=== PATIENT | female | born 1955 | race Caucasian/White ===

== ENCOUNTER 2023-12-07 09:53 | Emergency (ER) | payer MEDICARE, OTHER, SELFPAY ==
[2023-12-07 09:56] VITALS: BP 141/70
[2023-12-07 11:03] VITALS: BP 151/73
[2023-12-07 11:11] LABS: % Basophils 0.6 % (0-2); % Eosinophils 4.1 % (0-6); % Immature Granulocytes 0.3 % (0-0.5); Absolute Basophils 0.1 10^3/uL (0-0.2); Absolute Eosinophils 0.3 10^3/uL (0-0.7); Absolute Lymphocytes 2.1 10^3/uL (1.2-3.4); Absolute Monocytes 0.7 10^3/uL (0.1-0.6); Absolute Neutrophils 4.7 10^3/uL (1.4-6.5); Hematocrit 38.6 % (37.0-47.0); Hemoglobin 14.3 g/dL (12.0-16.0); Mean Corpuscular Hgb 30.4 pg (27.0-31.0); Mean Platelet Volume 10.4 fL (7.4-10.4); Nucleated Red Blood Cells % 0 %; Platelet Count 323 10^3/uL (130-400); Red Blood Cell Count 4.71 10^6/uL (4.20-5.40); Red Cell Dist. Width 12.1 % (11.5-14.5); White Blood Cell Count 7.9 10^3/uL (4.8-10.8)
--- NOTE | 2023-12-07 11:17 | ED.GENMED ---
History of Present Illness
<Keven Butler Jr., PA-C - Last Filed: 12/07/23 13:25>
General
Chief Complaint: Headache
Source: patient
Exam Limitations: none
Time Seen by Provider: 12/07/23 10:51
Nursing documentation reviewed up to this point in time: agreed with
Travel History
Have you had any contact with someone who has COVID-19?: No
Do you have any symptoms of coronavirus? Fever > 100 degrees, chills, cough, shortness of breath, sore throat, loss of taste or smell, muscle aches, or headache?: No
History of Present Illness
History of Present Illness:
68-year-old female past medical history of previous CVA does have a right-sided cerebral aneurysm also history of migraines presenting to the emergency department today with concerns of a throbbing headache to the left side of her head surrounding
her eye but no vision changes no numbness or weakness symptoms very minimal at this time symptoms have been ongoing for a few hours prior to arrival. No medications taken today
Past History
<Keven Butler Jr., PA-C - Last Filed: 12/07/23 13:25>
Past History
ED Past Medical History: CVA, HTN and NIDDM
ED Past Surgical History: Gynecological
Social History
Tobacco: Non-smoker
Alcohol: None
Personal:
Living: with family
Family History
Family History: Negative Early CAD
Review of Systems
<Keven Butler Jr., PA-C - Last Filed: 12/07/23 13:25>
Review of Systems
Allergies reviewed?: Yes
All Other Systems: ROS reviewed and negative except as documented in HPI and ROS
Phy Exam
<Keven Butler Jr., PA-C - Last Filed: 12/07/23 13:25>
Physical Exam
Physical Exam:
GENERAL: Alert , in no apparent distress
EYE: pupils equal and reactive
NECK: Supple, no significant adenopathy.
ENT: o/p clr, mmm.
CARDIAC: Regular rate and rhythm .
LUNGS: Clear breath sounds bilaterally, no acute respiratory distress, no wheezes/rales/rhonchi
ABDOMEN: Soft, without focal tenderness, no r/g, no cvat
NEUROLOGICAL: Alert and oriented, no focal neuro deficits 5-5 upper and lower extremity strength normal sensation with palpating bilaterally normal finger-nose and heel pope no pronator drift
SKIN: Warm and dry, skin intact.
MUSCULOSKELETAL: No edema, well perfused.
PSYCH: Normal and appropriate interaction.
Course
<Keven Butler Jr., NIRAV - Last Filed: 12/07/23 13:25>
Orders/Labs/Results
Orders:
Orders
12/07/23 10:00
CT Head W/o Iv Contrast Urgent
Comment:
Reason For Exam: headache
12/07/23 10:52
Electrocardiogram (*1) Stat
Reason for Study: Other
Other Reason for Exam: Headache
EKG- Treatment ONCE
12/07/23 11:04
Complete Blood Count/With Diff Urgent
Comprehensive Metabolic Panel Urgent
Erythrocyte Sed Rate Urgent
12/07/23 11:07
CT Head & Neck Angio W/wo IV Urgent
Comment:
Reason For Exam: hx of aneurysm, left sided MCCULLOUGH
Abnormal Lab Results
12/07/23
11:04
Absolute Monos (auto) 0.7 H 10^3/uL
(0.1-0.6)
ESR 30 H mm/hour
(0-20)
BUN 18 H mg/dl
(7-17)
Glucose 123 H mg/dl
(70-99)
12/07/23 11:04
12/07/23 11:04
Vital Signs
Initial and Last Documented VS:
Initial Vital Signs
Temp Pulse Resp BP Pulse Ox
98.4 F 81 16 141/70 100
12/07/23 09:56 12/07/23 09:56 12/07/23 09:56 12/07/23 09:56 12/07/23 09:56
Last Documented Vital Signs
Temp Pulse Resp BP Pulse Ox
98.4 F 70 15 151/73 97
12/07/23 09:56 12/07/23 11:30 12/07/23 11:30 12/07/23 11:03 12/07/23 11:30
<Darvin Cunha, - Last Filed: 12/07/23 13:21>
Orders/Labs/Results
Orders:
Orders
12/07/23 10:00
CT Head W/o Iv Contrast Urgent
Comment:
Reason For Exam: headache
12/07/23 10:52
Electrocardiogram (*1) Stat
Reason for Study: Other
Other Reason for Exam: Headache
EKG- Treatment ONCE
12/07/23 11:04
Complete Blood Count/With Diff Urgent
Comprehensive Metabolic Panel Urgent
Erythrocyte Sed Rate Urgent
12/07/23 11:07
CT Head & Neck Angio W/wo IV Urgent
Comment:
Reason For Exam: hx of aneurysm, left sided MCCULLOUGH
Abnormal Lab Results
12/07/23
11:04
Absolute Monos (auto) 0.7 H 10^3/uL
(0.1-0.6)
ESR 30 H mm/hour
(0-20)
BUN 18 H mg/dl
(7-17)
Glucose 123 H mg/dl
(70-99)
12/07/23 11:04
12/07/23 11:04
Vital Signs
Initial and Last Documented VS:
Initial Vital Signs
Temp Pulse Resp BP Pulse Ox
98.4 F 81 16 141/70 100
12/07/23 09:56 12/07/23 09:56 12/07/23 09:56 12/07/23 09:56 12/07/23 09:56
Last Documented Vital Signs
Temp Pulse Resp BP Pulse Ox
98.4 F 70 15 151/73 97
12/07/23 09:56 12/07/23 11:30 12/07/23 11:30 12/07/23 11:03 12/07/23 11:30
<Keven Butler Jr., PA-C - Last Filed: 12/07/23 13:25>
MDM/Problems Addressed
MDM/Problems Addressed:
68-year-old female presenting to the emergency department today with concerns of throbbing headache to the left side of her head and face surrounding her left eye but denies any vision changes normal neurologic evaluation here normal vital signs
does have a history of cerebral aneurysm. No reproducible pain to her face symptoms at time of arrival here. Patient does have ongoing field cut visual changes from previous stroke but no new or neurologic symptoms here. Vital signs normal labs
unremarkable CT scan and CT angiogram without emergent findings and no acute changes. Patient appears stable for discharge no evidence of life-threatening etiology of headache at this time.
<Keven Butler Jr., PA-C - Last Filed: 12/07/23 13:25>
*Critical Care Note
Total Time (30-74mins, 75-104mins- exclusive of procedures): Not Applicable
ED Attending Note
<Keven Butler Jr., PA-C - Last Filed: 12/07/23 13:25>
-
Portions of this chart may have been created with voice recognition software.� Occasional wrong word or��sound alike� substitutions may have occurred due to the inherent limitations of voice recognition software.
<Darvin Cunha DO - Last Filed: 12/07/23 13:21>
ED Attending Note
Patient seen and examined by attending physician: Yes
I performed the substantive portion of visit, reviewed & personally made and approve the management plan that is documented in note by myself or LIZZETTE.: Yes
ED Attending Note:
Patient is a 68-year-old female who presents to the emergency department with headache that started gradually about 830 9:00 today. Patient denies nausea or vomiting. Patient denies any recent injury or illness. Patient has a known aneurysm on
the right side. Patient has a previous stroke resulting in his field cut. Patient denies any changes in her vision, speech, ataxia or focal weakness. Patient denies chest pain, shortness of breath. On physical exam the visual field cut is
apparent. Otherwise patient's neurologic exam is unremarkable. Heart is regular lungs are clear. CT scan shows aneurysm. Sed rate has not significant or an indication of temporal arteritis. Discussed findings with the patient and her .
Patient will be discharged.
Discharge Plan
Departure
Patient Disposition: Home (Routine Discharge)
Date of Disposition: 12/07/23
Time of Disposition: 13:24
Patient with high blood pressure during this ER visit?: No
Condition: Good
Covid-19: Not Applicable
Discharge Problem:
Headache
Instructions: Headache, Adult (DC)
Prescriptions:
No Action
Mony Low Dose Aspirin
81 mg PO DAILY
losartan 50 MG tablet
50 mg PO BID
trazodone 50 MG tablet
50 mg PO HS
amlodipine 5 MG tablet
5 mg PO DAILY
rosuvastatin 20 MG tablet
20 mg PO QPM
bupropion HCl 300 MG tablet extended release 24 hr
300 mg PO DAILY
fluvoxamine 100 MG tablet
100 mg PO BID
metformin 1,000 MG tablet
1,000 mg PO BID
nebivolol 10 MG tablet
10 mg PO BID
ezetimibe 10 MG tablet
10 mg PO DAILY Qty: 30 0RF
clopidogrel 75 MG tablet
75 mg PO DAILY Qty: 30 0RF
Referrals:
Declan Vyas MD [Family Provider] -
Activity Restrictions/Additional Instructions:
You came to the emergency department today with concerns of a headache. There is no evidence of any life-threatening etiology. Please treat this at home and return for any worsening, new or concerning symptoms.
Interventions
Interventions:
*General Assessment Last Done: 12/07/23 09:56
*ED COVID-19 Vaccine History Last Done: 12/07/23 09:56
ED- Neurological Assessment Last Done: 12/07/23 11:05
Discharge Date and Time
Print Language: TURKISH
[2023-12-07 11:31] LABS: ALT (SGPT) 18 U/L (0-35); AST (SGOT) 21 U/L (14-36); Albumin 4.9 g/dl (3.5-5.0); Alkaline Phosphatase 109 U/L (38-126); Blood Urea Nitrogen 18 mg/dl (7-17); Calcium 10.2 mg/dl (8.4-10.2); Carbon Dioxide 22 mmol/L (22-30); Chloride 106 mmol/L (98-107); Glucose 123 mg/dl (70-99); Potassium 4.3 mmol/L (3.5-5.1); Sodium 142 mmol/L (135-145); Total Bilirubin 0.7 mg/dl (0.2-1.3); Total Protein 8.1 g/dl (6.3-8.2); eGFR > 60.00
[2023-12-07 11:51] LABS: Erythrocyte Sed Rate 30 mm/hour (0-20)
[2023-12-07 13:49] VITALS: BP 122/66
== END 2023-12-07 14:07 | disposition home or self-care (01) ==
LOC: EMR 09:53
PROVIDERS: Physician Assistant; EMERGENCY PHYSICIAN Emergency Medicine; FAMILY PHYSICIAN Internal Medicine
DX: R51.9 Headache, unspecified (principal); Z86.73 Personal history of transient ischemic attack (TIA), and cerebral infarction without residual deficits
CPT/HCPCS: 99285; 70450; 70496; 70498; 80053; 85025; 85652; 93005; Q9967